=== PATIENT | female | born 1995 | race Caucasian/White ===

== ENCOUNTER → 2016-08-07 | Outpatient (CLI) | payer BC ==
[~2016-08-07] MED LIST: BCPILLS PO; BIOT1CAP8 PO; CLIN150C PO; LYSI100010 PO; METH4PAK PO; OXYC1TAB3 PO; PENI500T2 PO
== END | disposition home or self-care (01) ==
LOC: C.LABSPEC 17:35
DX: J02.0 Streptococcal pharyngitis (principal)

== ENCOUNTER 2016-09-17 11:03 | Emergency (ER) | payer BC ==
[~2016-09-17] VITALS: Ht 160 cm; Wt 63.2 kg
[2016-09-17] MEDS ORDERED: BENZOCAIN/TETRACA/BUTAM SPRAY 200 APPLN/20 GM SPRY EXT ONE (11:07)
[2016-09-17 11:08] VITALS: TEMP 36.9; Ht 160 cm; Wt 63.2 kg
[2016-09-17] MEDS ORDERED: ONDANSETRON INJ 2 MG/ML 2 ML VIAL IV STA (11:23)
[2016-09-17] MEDS ORDERED: SODIUM CHLORIDE 0.9% 1000ML 1,000 ML IV STA (11:23)
[2016-09-17] MEDS ORDERED: KETOROLAC TROMETHAMINE 30 MG/ML VIAL IV STA (11:23)
--- NOTE | 2016-09-17 11:29 | EMERGENCY ROOM VISIT NOTE ---
History Report prepared by Carlos: Kyle Xie Under the Supervision of: Dr. Carlos Manuel De La Fuente D.O. First contact with patient: 11:13 Chief Complaint: INFECTION Stated Complaint: INFECTION IN THROAT, CLOSED/SWELLING, PAIN History of Present Illness The patient is a 20 year old female who presents to the Emergency Room with complaints of swelling in the back of her throat that began yesterday. The patient's mother states that she had a peritonsillar abscess drained one month ago, which felt very similar to this episode. They called Dr. Molina's office this morning at [facility], who advised her to come to the Emergency Department. The patient denies any recent fevers or chills. She has taken Advil today for her pain. Source of History: patient, parent Onset: Yesterday Position: throat Quality: other (Peritonsillar Abscess) Associated Symptoms: + sorethroat, No chills, No fevers Review of Systems See HPI for pertinent positives & negatives. A total of 10 systems reviewed and were otherwise negative. Past Medical & Surgical Medical Problems: (1) Peritonsillar abscess Surgical Problems: (1) H/O peritonsillar abscess drainage Family History No pertinent family history secondary to case. Social History Smoking Status: Never Smoker Marital Status: single Housing Status: lives with roommate Occupation Status: [employer] student Current/Historical Medications Scheduled Control Pills ( Control Pills), 1 TAB PO DAILY Clindamycin Hcl (Cleocin), 300 MG PO TID Methylprednisolone (Medrol Dosepak), 0 PO DAILY Penicillin V Potassium (Veetids), 500 MG PO QID Scheduled PRN Oxycodone Immediate Rel Tab (Roxicodone Ir), 1 TAB PO Q4H PRN for Severe Pain Allergies Coded Allergies: No Known Allergies (Unverified , 09/17/16) Physical Exam Vital Signs Date Time Temp Pulse Resp B/P Pulse Ox O2 Delivery O2 Flow Rate FiO2 09/17/16 13:51 98 16 104/73 99 09/17/16 12:54 99 14 120/79 99 Room Air 09/17/16 11:08 36.9 111 18 110/68 97 Room Air Physical Exam GENERAL: Patient is awake, alert, and mildly anxious, obviously uncomfortable appearing. EYES: The conjunctivae are clear. The pupils are round and reactive. EARS, NOSE, MOUTH AND THROAT: The nose is without any evidence of any deformity. Mucous membranes are moist. There is unilateral tonsillar mass on the right with soft pallet involvement and uvular deviation away. Anterior cervical adenopathy appreciated, no meningeal signs appreciated. Patient had a muffled voice. NECK: The neck is nontender and supple. RESPIRATORY: Normal respiratory effort is noted there is no evidence of wheezing rhonchi or rales CARDIOVASCULAR: Regular rate and rhythm noted there no murmurs rubs or gallops normal S1 normal S2 GASTROINTESTINAL: The abdomen is soft. Bowel sounds are present in all quadrants. Abdomen is nontender PELVIS: The Pelvis is stable. No tenderness to palpation is noted. BACK: No midline tenderness or or step-off noted range of motion in flexion extension as well as rotation no signs of muscle spasm noted MUSCULOSKELETAL/EXTREMITIES: There is no evidence of gross deformity full range of motion is noted in the hips and shoulders SKIN: There is no obvious evidence of any rash. There are no petechiae, pallor or cyanosis noted. NEUROLOGIC: Patient is awake alert and oriented x3 strength is symmetric patellar reflexes are 2+ bilaterally Medical Decision & Procedures Laboratory Results 09/17/16 11:50 Red Blood Count 5.21, Mean Corpuscular Volume 82.3, Mean Corpuscular Hemoglobin 28.0, Mean Corpuscular Hemoglobin Concent 34.0, Mean Platelet Volume 9.7, Neutrophils (%) (Auto) 81.3, Lymphocytes (%) (Auto) 12.0, Monocytes (%) (Auto) 6.1, Eosinophils (%) (Auto) 0.2, Basophils (%) (Auto) 0.2, Neutrophils # (Auto) 9.85, Lymphocytes # (Auto) 1.45, Monocytes # (Auto) 0.74, Eosinophils # (Auto) 0.02, Basophils # (Auto) 0.02 09/17/16 11:50 Test 09/17/16 11:50 White Blood Count 12.10 K/uL (4.8-10.8) Red Blood Count 5.21 M/uL (4.2-5.4) Hemoglobin 14.6 g/dL (12.0-16.0) Hematocrit 42.9 % (37-47) Mean Corpuscular Volume 82.3 fL (80-100) Mean Corpuscular Hemoglobin 28.0 pg (25-34) Mean Corpuscular Hemoglobin Concent 34.0 g/dl (32-36) Platelet Count 233 K/uL (130-400) Mean Platelet Volume 9.7 fL (7.4-10.4) Neutrophils (%) (Auto) 81.3 % Lymphocytes (%) (Auto) 12.0 % Monocytes (%) (Auto) 6.1 % Eosinophils (%) (Auto) 0.2 % Basophils (%) (Auto) 0.2 % Neutrophils # (Auto) 9.85 K/uL (1.4-6.5) Lymphocytes # (Auto) 1.45 K/uL (1.2-3.4) Monocytes # (Auto) 0.74 K/uL (0.11-0.59) Eosinophils # (Auto) 0.02 K/uL (0-0.5) Basophils # (Auto) 0.02 K/uL (0-0.2) RDW Standard Deviation 41.0 fL (36.4-46.3) RDW Coefficient of Variation 13.5 % (11.5-14.5) Immature Granulocyte % (Auto) 0.2 % Immature Granulocyte # (Auto) 0.02 K/uL (0.00-0.02) Erythrocyte Sedimentation Rate 28 mm/hr (0-21) Anion Gap 9.0 mmol/L (3-11) Est Creatinine Clear Calc Drug Dose 93.1 ml/min Estimated GFR () 111.9 Estimated GFR (Non- 96.6 BUN/Creatinine Ratio 12.5 (10-20) Calcium Level 9.6 mg/dl (8.5-10.1) Total Bilirubin 1.2 mg/dl (0.2-1) Direct Bilirubin 0.3 mg/dl (0-0.2) Aspartate Amino Transf (AST/SGOT) 9 U/L (15-37) Alanine Aminotransferase (ALT/SGPT) 24 U/L (12-78) Alkaline Phosphatase 73 U/L (45-117) C-Reactive Protein 10.70 mg/dl (0-0.29) Total Protein 7.9 gm/dl (6.4-8.2) Albumin 3.9 gm/dl (3.4-5.0) Human Chorionic Gonadotropin, Qual NEG (NEG) Monoscreen NEG (NEG) Laboratory results per my review. Medications Administered Medications (Trade) Dose Ordered Sig/Nina Route Start Time Stop Time Status Last Admin Dose Admin Ketorolac Tromethamine 30 mg 30 mg NOW STAT IV 09/17/16 11:23 09/17/16 11:25 DC 09/17/16 11:48 30 MG Sodium Chloride (Nss 1000ml) 1,000 ml @ 999 mls/hr Q1H1M STAT IV 09/17/16 11:23 09/17/16 12:23 DC 09/17/16 11:51 999 MLS/HR Ondansetron HCl 4 mg 4 mg NOW STAT IV 09/17/16 11:23 09/17/16 11:26 DC 09/17/16 11:46 4 MG Ampicillin Sodium/ Sulbactam Sodium/ Sodium Chloride (Unasyn Inj/Nss 100ml) 108 ml @ 200 mls/hr ONE ONCE IV 09/17/16 11:30 09/17/16 12:02 DC 09/17/16 11:50 200 MLS/HR Dexamethasone Sodium Phosphate (Decadron Inj) 10 mg NOW ONCE IV 09/17/16 11:30 09/17/16 11:31 DC 09/17/16 11:50 10 MG ED Course 1119: The patient was evaluated in room B7. A complete history and physical examination were performed. 1123: Ordered Zofran 4 mg IV, Sodium Chloride 1000 mL @ 999 mL/hr IV, Toradol 30 mg IV. 1130: Ordered Decadron 10 mg IV, Ampicillin Sodium 108 mL @ 200 mL/hr IV. 1201: I discussed the case with Dr. Molina - ENT at this time, he will come see the patient to perform an incision and drainage. 1357: Upon reevaluation, the patient is resting in bed, and tolerated the procedure well. I discussed the results and treatment plan with her and her mother. They verbalized agreement of the treatment plan. The patient was discharged home. Medical Decision Differential diagnosis: Etiologies such as viral syndrome, tonsillitis, streptococcal pharyngitis, mononucleosis, peritonsillar abscess, retropharyngeal abscess, otitis, pneumonia , influenza, as well as others were entertained. Nursing notes reviewed. The patient is a 20-year-old female who presented to the emergency department for an evaluation of sore throat. The patient has a history of peritonsillar abscess which was treated with incision and drainage. The patient was treated with IV fluids IV pain medicine and IV antiemetics. She was also given IV steroids and IV and about. She was evaluated by the ear nose and throat physician and had an incision and drainage. The patient was instructed to continue all medications as prescribed and drink plenty clear liquids. She was also encouraged to return to the emergency department immediately symptoms change worsen or the need arises. Consults Time Called: 1152 Consulting Physician: Dr. Jesse HANEY Returned Call: 1201 I discussed the case with Dr. Jesse HANEY at this time, he will come see the patient to perform an incision and drainage. Impression Primary Impression: Peritonsillar abscess Scribe Attestation The scribe's documentation has been prepared under my direction and personally reviewed by me in its entirety. I confirm that the note above accurately reflects all work, treatment, procedures, and medical decision making performed by me. Departure Information Dispostion Home / Self-Care Prescriptions Oxycodone Immediate Rel Tab (ROXICODONE IR) 5 Mg Tab 1 TAB PO Q4H Y for Severe Pain, #20 TAB Prov: Carlos Manuel De La Fuente, DO 09/17/16 Methylprednisolone (MEDROL DOSEPAK) 4 Mg Ronnie 0 PO DAILY, #1 PKT Prov: Carlos Manuel De La Fuente, DO 09/17/16 Penicillin V Potassium (VEETIDS) 500 Mg Tab 500 MG PO QID, #56 TAB Prov: Carlos Manuel De La Fuente, DO 09/17/16 Clindamycin Hcl (CLEOCIN) 150 Mg Cap 300 MG PO TID, #42 CAP Prov: Carlos Manuel De La Fuente, DO 09/17/16 Referrals No Doctor, Assigned (PCP) Forms HOME CARE DOCUMENTATION FORM, IMPORTANT VISIT INFORMATION, WORK / SCHOOL INSTRUCTIONS Patient Instructions My [facility] Additional Instructions Follow-up with ear nose and throat physician as scheduled. Drink plenty clear liquids. Member to gargle approximate 4 to 5 times a day. Follow-up with your family doctor soon as possible. Return to the emergency department immediately if symptoms change worsen or the need arises.
[2016-09-17] MEDS ORDERED: DEXAMETHASONE SOD INJ 10 MG/ML VIAL IV ONE (11:30)
[2016-09-17] MEDS ORDERED: AMPICILLIN/SULBACTAM SOD INJ 3,000 MG in SODIUM CHLORIDE 0.9% 100ML 100 ML IV ONE (11:30)
[2016-09-17 12:10] LABS: BASO % 0.2 %; BASO ABS # 0.02 K/uL (0-0.2); COMPLETE YES; EOS % 0.2 %; HEMATOCRIT 42.9 % (37-47); IG% 0.2 %; LYMPH ABS # 1.45 K/uL (1.2-3.4); MEAN CELL VOLUME 82.3 fL (80-100); MEAN PLATELET VOLUME 9.7 fL (7.4-10.4); MONO % 6.1 %; NEUT % 81.3 %; PLATELET COUNT 233 K/uL (130-400); RED BLOOD COUNT 5.21 M/uL (4.2-5.4)
[2016-09-17 12:26] LABS: BUN/CREATININE RATIO 12.5 (10-20); CALCIUM 9.6 mg/dl (8.5-10.1); CREATININE 0.87 mg/dl (0.60-1.20); POTASSIUM 4.1 mmol/L (3.5-5.1)
[2016-09-17 12:58] LABS: PREG INTERNAL NEGATIVE QC NEG CLEAR BACKGROUND; PREG INTERNAL POSITIVE QC POS CONTROL LINE
[2016-09-17] MEDS ORDERED: BCPILLS PO (13:00)
[2016-09-17] MEDS ORDERED: PENI500T2 PO (13:34)
[2016-09-17] MEDS ORDERED: CLIN150C PO (13:34)
[2016-09-17] MEDS ORDERED: OXYC1TAB3 PO (13:34)
[2016-09-17] MEDS ORDERED: METH4PAK PO (13:34)
[2016-09-17 13:38] LABS: C-REACTIVE PROTEIN 10.7 mg/dl (0-0.29)
[2016-09-17 13:51] VITALS: BP 104/73; PULSE 98; O2SAT 99
--- NOTE | 2016-09-17 18:03 | ENT CONSULTATION ---
DATE OF CONSULTATION: 09/17/2016 REQUESTING PHYSICIAN: Dr. Carlos Manuel De La Fuente. INDICATION FOR THE CONSULTATION: Recurrent right peritonsillar abscess. 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 About 3 weeks ago, she had a peritonsillar abscess first aspirated and then incised and drained by Dr. Diaz. She took antibiotics and continued to feel better; however, shortly after the antibiotics finished, she started to become ill and this peaked today when it felt like her throat was closing off and she had increased pain on the right side of her throat. It was not as bad as the initial episode 3 weeks ago, but it was bad. As far as the past medical history, review of systems, and vitals, they are all in the ED record. As far as my physical exam, I saw her in pod B7 at the [facility] ED. She was awake and alert and cooperative and her mother was present. About 30 to 60 seconds before I walked into the room, the peritonsillar abscess started to drain spontaneously. I sprayed the back of her throat with Cetacaine spray and then opened the drainage port slightly with the head of a Q-tip. I pressed all around the drainage port and expressed all pus. I had her gargle with saline and then I did it again and there was no further pus. She felt much better, had no uvula deviation, almost no peritonsillar fullness on the right and almost no trismus. ASSESSMENT AND PLAN: This patient has experienced spontaneous drainage of her recurrent peritonsillar abscess. I first of all encouraged her and her mom to consider having her tonsils out by Dr. Everton Diaz shortly after she finishes this semester. They will follow up in his office. In the interim, she will take 10 days of penicillin 500 mg q.i.d. along with clindamycin 300 mg t.i.d. for 7 days. This is all of course pending review of her allergies. Dr. Niles De La Fuente will make arrangements for these medications. Additionally, she would be on a Medrol Dosepak and be provided with adequate pain medicine. She will gargle 4 times a day with salt water. [facility]
[2016-11-09] MEDS ORDERED: BIOT1CAP8 PO (10:49)
[2016-11-09] MEDS ORDERED: LYSI100010 PO (10:49)
== END 2016-09-17 13:57 | disposition home or self-care (01) ==
LOC: C.EDB 11:06
DX: J36 Peritonsillar abscess (principal); Z79.3 Long term (current) use of hormonal contraceptives

== ENCOUNTER → 2016-11-10 | Day surgery (SDC) | payer BC ==
[2016-11-09 10:49] VITALS: Ht 160 cm; Wt 65.9 kg
[~2016-11-10] VITALS: Ht 160 cm; Wt 65.9 kg
[~2016-11-10] MED LIST changes: +ACETAMINOPHEN/HYDROCODONE ELIX 15 ML/CUP UDP ONE; +ATROPINE SULFATE 0.1 MG/ML 5ML SYR IV PRN; +BACITRACIN/POLYMYXIN B OINT 15 GM TUBE EXT ONE; -CLIN150C PO; +DEXAMETHASONE SOD INJ 4 MG/ML VIAL ONE; +EpHEDrine SULFATE INJ 50 MG/ML AMP IV PRN; +FENTANYL CITRATE INJ 50 MCG/1 ML 2 ML VIAL IV PRN; +FENTANYL CITRATE INJ 50 MCG/1 ML 2 ML VIAL ONE; +HYDROCODONE/APAP 2.5MG/108MG ELIX 5 ML UDP PO PRN; +LACTATED RINGER'S 1000ML 1,000 ML IV SCH; +LIDOCAINE 2% JELLY 5 ML TUBE EXT ONE; -METH4PAK PO; +MIDAZOLAM HCL 1 MG/ML 2ML VIAL ONE; +NALOXONE HCL 0.4 MG/1 ML VIAL/CARP ONE; +ONDANSETRON INJ 2 MG/ML 2 ML VIAL IV PRN; +ONDANSETRON INJ 2 MG/ML 2 ML VIAL ONE; -OXYC1TAB3 PO; -PENI500T2 PO; +PROPOFOL IV EMULSION 10 MG/ML 20 ML VIAL IV ONE; +SCOPOLAMINE 1.5 MG TDSY TD ONE; +SUCCINYLCHOLINE CHLORIDE 20 MG/ML 10 ML VIAL IV ONE
--- NOTE | 2016-11-10 07:33 | History & Physical Bridge - SC ---
H&P Re-Evaluation Bridge Note: I have examined the patient, reviewed the History & Physical and in the interval since the performance of the History & Physical I have noted the following changes of clinical significance: No changes noted
--- NOTE | 2016-11-10 07:35 | History and Physical: Surg Cnt ---
History & Physical Date November 10, 2016. 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 Past Medical/Surgical History Medical Problems: (1) Peritonsillar abscess Surgical Problems: (1) H/O peritonsillar abscess drainage ANXIETY, S/P ORAL SURGERY Additional History Hepatic Disease: No Endocrine Disorder: No Kidney Disease: No Hypertension: No Heart Disease: No Bleeding Tendencies: No Infectious Diseases: No Allergies Coded Allergies: No Known Allergies (Unverified , 11/10/16) Home Medications Scheduled Biotin (Biotin), 1 CAP PO QAM Control Pills ( Control Pills), 1 TAB PO HS Lysine Hcl (Lysine), 1 TAB PO QAM Physical Examination Skin: warm/dry, no rash Eyes: normal inspection, EOMI, sclerae normal ENT: + pertinent finding (2+ CRYPTIC TONSILS) Head: normocephalic, atraumatic Neck: supple, no adenopathy, trachea midline Respiratory/Chest: lungs clear, normal breath sounds, no respiratory distress Cardiovascular: regular rate, rhythm, no edema, no murmur Neurologic/Psych: no motor/sensory deficits, alert, normal reflexes, oriented x 3 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
--- NOTE | 2016-11-10 08:55 | [facility] Operative Report ---
Operative Report Operative Date November 10, 2016. Pre-Operative Diagnosis Recurrent Right Peritonsillar Abscess Post-Operative Diagnosis Same Procedure(s) Performed Tonsillectomy Surgeon Dr. Diaz Nanny/Household Manager Surgeon(s) None Estimated Blood Loss 0 Findings 2+ TONSILS WITH CHRONIC INFLAMMATION AND SCARRING OF THE RIGHT PERITONSILLAR SPACE Specimens A. Right Tonsil B. Left Tonsil I attest to the content of the Intraoperative Record and any orders documented therein. Any exceptions are noted below.
--- NOTE | 2016-11-10 08:57 | Discharge Instructions ---
Discharge Instructions Date of Service November 10, 2016. Admission Reason for Admission: Peritonsillar Abscess Discharge Discharge Diagnosis / Problem: SAME Discharge Goals Goal(s): Therapeutic intervention Activity Recommendations Activity Limitations: as noted below NO DRIVING WHILE ON LORTAB, LIGHT ACTIVITY FOR 2WEEKS, NO LEAVING THE LOCAL AREA FOR 2WEEKS . Current Hospital Diet Patient's current hospital diet: Full Liquid Diet Discharge Diet Recommended Diet: Full Liquid Diet Diet Texture: Mechanical Soft (ground) Procedures Procedures Performed: Tonsillectomy Pending Studies Studies pending at discharge: no Medical Emergencies . Who to Call and When: Medical Emergencies: If at any time you feel your situation is an emergency, please call 911 immediately. . Non-Emergent Contact Non-Emergency issues call your: Surgeon . . "Provider Documentation" section prepared by Everton Diaz. . VTE Core Measure Inpt VTE Proph given/why not?: SCD's
--- NOTE | 2016-11-10 09:50 | OPERATIVE REPORT ---
DATE OF OPERATION: 11/10/2016 PREOPERATIVE DIAGNOSIS: Recurrent right peritonsillar abscess. POSTOPERATIVE DIAGNOSIS: Recurrent right peritonsillar abscess. PROCEDURE: Bilateral tonsillectomy. SURGEON: Everton Diaz MD ANESTHESIA: General endotracheal. ESTIMATED BLOOD LOSS: Zero. FINDINGS: 2+ tonsils bilaterally with evidence of chronic inflammation and scarring involving the right peritonsillar space superiorly. SPECIMENS: Right and left tonsil sent separately for permanent pathological assessment. COMPLICATIONS: None. INDICATIONS FOR THE PROCEDURE: The patient is a 21-year-old female who has had multiple peritonsillar abscesses on the right hand side that had been incised and drained. She continued to have symptomatology if she was not on antibiotics plus or minus steroids. She presents for the above-mentioned procedure on an outpatient elective basis. DESCRIPTION OF PROCEDURE: After informed consent had been obtained from the patient, the patient was wheeled to the operating room and placed on the operating table in the supine position. Monitors were placed. After induction of general endotracheal anesthesia, the table was turned 90 degrees and the patient's head and neck were gently extended. Antibiotic ointment was applied to the lips and a mouth gag was carefully inserted, opened, and stabilized on a roll of towels. The palate was inspected and this was found to be normal. A catheter was then inserted into the right nasal cavity and this was used to elevate the soft palate and uvula. A laryngeal mirror was used to inspect the nasopharynx and intraoperative findings were with no evidence of adenoid tissue. The catheter was then removed. An Allis clamp was then used to grasp the right tonsil and the superior pole. Bovie electrocautery was used to remove the tonsil in the capsular plane with care to preserve the underlying mucosa and musculature of the anterior and posterior tonsillar pillars. The right tonsil was removed in a similar fashion. The intraoperative findings were 2+ tonsils bilaterally with evidence of chronic inflammation and scarring on the right peritonsillar space superiorly. The mouth gag was then released for 1 minute. This was reopened and hemostasis was confirmed. An orogastric tube was placed and the stomach was suctioned free any stomach contents. 2% lidocaine jelly was placed into the bilateral tonsillar fossae for an added anesthetic effect. This marked the end of the case. The patient tolerated the procedure well. There were no apparent complications. The patient was extubated and transferred to recovery room in stable condition. I attest to the content of the Intraoperative Record and any orders documented therein. Any exceptio ns are noted below.
[2016-11-10 10:05] VITALS: TEMP 36.5
[2016-11-10 10:30] VITALS: BP 99/60; PULSE 64; O2SAT 100
--- NOTE | 2016-11-10 10:40 | Anesthesia Progress Nt - [facility] ---
Anesthesia Post Op Note Date & Time November 10, 2016 at 10:34 Vital Signs Pain Intensity: 3 Vital Signs Past 12 Hours Date Time Temp Pulse Resp B/P Pulse Ox O2 Delivery O2 Flow Rate FiO2 11/10/16 10:05 36.5 73 16 119/71 100 Room Air 11/10/16 09:48 36.8 79 16 112/69 98 Room Air 11/10/16 09:46 81 15 112/69 97 11/10/16 09:46 79 15 11/10/16 09:41 84 19 113/70 98 11/10/16 09:41 85 19 11/10/16 09:36 82 10 11/10/16 09:36 80 10 109/69 98 11/10/16 09:32 115/74 11/10/16 09:31 85 19 11/10/16 09:31 83 19 99 11/10/16 09:26 84 12 97/59 100 11/10/16 09:26 85 12 11/10/16 09:21 90 23 11/10/16 09:21 91 23 109/71 100 11/10/16 09:18 105/64 11/10/16 09:16 91 61 11/10/16 09:16 36.5 98 16 105/64 100 Mask 6 11/10/16 09:16 92 61 100 11/10/16 07:29 36.6 86 16 103/63 98 Room Air Notes Mental Status: alert / awake / arousable, participated in evaluation Pt Amnestic to Procedure: Yes Nausea / Vomiting: adequately controlled Pain: adequately controlled Airway Patency, RR, SpO2: stable & adequate BP & HR: stable & adequate Hydration State: stable & adequate Anesthetic Complications: no major complications apparent The patient is a 21 y/o female with no significant PMH s/p Tonsillectomy with Dr. Diaz. Intraoperatively, the patient received 150mg mcg IV fentanyl. At the end of the case she was not breathing on her own despite the volatile anesthetic being off for some time. She was given 0.08 mg IV Narcan and resumed spontaneous ventilation. She was extubated without difficulty. She was awake in Phase I recovery and comfortable. She continued to do well in Phase II recovery with no issues. She was monitored for over an hour after the Narcan dose was given. On discharge she was comfortable with no nausea and was very satisfied with her care.
== END | disposition home or self-care (01) ==
LOC: X.SURG 07:03
DX: J36 Peritonsillar abscess (principal); Z79.3 Long term (current) use of hormonal contraceptives